=== PATIENT | female | born 1970 | race Caucasian/White ===

== ENCOUNTER → 2021-03-17 10:33 | Outpatient (BNVA) | payer OTHER, SELFPAY | PROVIDERS: PCP Physician Assistant; Visit Provider Nurse Practitioner Family | DX: G24.3 Spasmodic torticollis (principal); F07.81 Postconcussional syndrome; F06.30 Mood disorder due to known physiological condition, unspecified; R90.82 White matter disease, unspecified; Z79.899 Other long term (current) drug therapy | CPT/HCPCS: 99212 ==

== ENCOUNTER → 2021-05-14 10:06 | Outpatient (BNVA) | payer OTHER, SELFPAY | PROVIDERS: PCP Physician Assistant; Visit Provider Nurse Practitioner Family | DX: G24.3 Spasmodic torticollis (principal); F07.81 Postconcussional syndrome; F06.30 Mood disorder due to known physiological condition, unspecified; S09.90XS Unspecified injury of head, sequela | CPT/HCPCS: 99212 ==

== ENCOUNTER → 2021-06-19 09:14 | Outpatient (BNVA) | payer OTHER, SELFPAY | PROVIDERS: PCP Physician Assistant; Visit Provider Nurse Practitioner Family | DX: G24.3 Spasmodic torticollis (principal); F07.81 Postconcussional syndrome; F06.30 Mood disorder due to known physiological condition, unspecified; S09.90XS Unspecified injury of head, sequela | CPT/HCPCS: 99212 ==

== ENCOUNTER → 2021-08-15 09:01 | Outpatient (BNVA) | payer OTHER, SELFPAY | PROVIDERS: PCP Physician Assistant; Visit Provider Nurse Practitioner Family | DX: F06.30 Mood disorder due to known physiological condition, unspecified (principal); F07.81 Postconcussional syndrome; G24.3 Spasmodic torticollis; S09.90XS Unspecified injury of head, sequela | CPT/HCPCS: 99212 ==

== ENCOUNTER → 2021-09-22 09:23 | Outpatient (BNVA) | payer OTHER, SELFPAY | PROVIDERS: PCP Physician Assistant; Visit Provider Nurse Practitioner Family | DX: G24.3 Spasmodic torticollis (principal); F07.81 Postconcussional syndrome; F06.30 Mood disorder due to known physiological condition, unspecified; S09.90XS Unspecified injury of head, sequela | CPT/HCPCS: 99212 ==

== ENCOUNTER → 2021-10-20 15:00 | Outpatient (BNVA) | payer OTHER, SELFPAY | PROVIDERS: PCP Physician Assistant; Visit Provider Psychiatry & Neurology Neurology | DX: G24.3 Spasmodic torticollis (principal) | CPT/HCPCS: 64616; 99211; J0585 ==

== ENCOUNTER → 2021-10-31 08:57 | Outpatient (BNVA) | payer OTHER, SELFPAY | PROVIDERS: PCP Physician Assistant; Visit Provider Psychiatry & Neurology Neurology | DX: G24.3 Spasmodic torticollis (principal) | CPT/HCPCS: 99212 ==

== ENCOUNTER → 2022-05-04 10:49 | Outpatient (BNVA) | payer OTHER, SELFPAY | PROVIDERS: PCP Physician Assistant; Visit Provider Nurse Practitioner Family | DX: F07.81 Postconcussional syndrome (principal); F06.30 Mood disorder due to known physiological condition, unspecified; G24.3 Spasmodic torticollis; S09.90XD Unspecified injury of head, subsequent encounter | CPT/HCPCS: 99212 ==

== ENCOUNTER → 2022-08-04 09:20 | Outpatient (BNVA) | payer OTHER, SELFPAY | PROVIDERS: PCP Physician Assistant; Visit Provider Nurse Practitioner Family | DX: F07.81 Postconcussional syndrome (principal); G24.3 Spasmodic torticollis; F06.30 Mood disorder due to known physiological condition, unspecified; S09.90XS Unspecified injury of head, sequela | CPT/HCPCS: 99212 ==

== ENCOUNTER 2022-12-11 14:25 | Outpatient (AMB) | payer OTHER, SELFPAY ==
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
[2022-12-11 14:27] VITALS: BP 108/78; PULSE 86; O2SAT 98; BMI 24.4
== END 2022-12-11 15:25 | disposition home or self-care (01) ==
PROVIDERS: PCP Physician Assistant; Visit Provider Nurse Practitioner Family
DX: G24.3 Spasmodic torticollis (principal); F07.81 Postconcussional syndrome; F06.30 Mood disorder due to known physiological condition, unspecified; S09.90XS Unspecified injury of head, sequela; M25.531 Pain in right wrist
CPT/HCPCS: 99214

== ENCOUNTER → 2022-12-11 14:25 | Outpatient (BNVA) | payer OTHER, SELFPAY | PROVIDERS: PCP Physician Assistant; Visit Provider Nurse Practitioner Family | DX: F07.81 Postconcussional syndrome (principal); F06.30 Mood disorder due to known physiological condition, unspecified; S09.90XS Unspecified injury of head, sequela; G24.3 Spasmodic torticollis; M25.531 Pain in right wrist; Z79.891 Long term (current) use of opiate analgesic; Z79.899 Other long term (current) drug therapy | CPT/HCPCS: 99212 ==

== ENCOUNTER 2023-06-09 08:02 | Outpatient (AMB) | payer OTHER, SELFPAY ==
[2023-06-09 08:11] VITALS: PULSE 79; O2SAT 99; BMI 24.6
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
== END 2023-06-09 09:52 | disposition home or self-care (01) ==
PROVIDERS: PCP Physician Assistant; Visit Provider Nurse Practitioner Family
DX: G24.3 Spasmodic torticollis (principal); G44.309 Post-traumatic headache, unspecified, not intractable; F07.81 Postconcussional syndrome; R20.2 Paresthesia of skin; M25.531 Pain in right wrist; R90.82 White matter disease, unspecified
CPT/HCPCS: 99214

== ENCOUNTER → 2023-06-09 08:02 | Outpatient (BNVA) | payer OTHER, SELFPAY | PROVIDERS: PCP Physician Assistant; Visit Provider Nurse Practitioner Family | DX: F07.81 Postconcussional syndrome (principal); F06.30 Mood disorder due to known physiological condition, unspecified; S09.90XS Unspecified injury of head, sequela; G24.3 Spasmodic torticollis; G44.209 Tension-type headache, unspecified, not intractable; R20.2 Paresthesia of skin; M25.531 Pain in right wrist; R90.82 White matter disease, unspecified; Z79.899 Other long term (current) drug therapy | CPT/HCPCS: 99212 ==

== ENCOUNTER 2023-09-03 08:29 | Outpatient (REF) | payer OTHER, SELFPAY ==
--- NOTE | ~2023-09-03 | MR_ITS ---
EXAMINATION: MR BRAIN WITHOUT AND WITH CONTRAST CLINICAL INFORMATION: Demyelinating white matter disease COMPARISON: None available. TECHNIQUE: Multiplanar, multisequence MRI of the brain was obtained before and after the intravenous administration of 7 mL Gadavist. FINDINGS: Ventricles, sulci and cisterns are normal. Several T2 hyperintense nonenhancing lesions are seen in bilateral frontal and parietal deep white matters, including a 0.5 cm lesion in mid right parasagittal frontal centrum semiovale, just lateral to the corpus callosum. A flame shaped nonenhancing T2 hyperintense lesion is seen in left parasagittal frontal deep white matter, just lateral to the anterior body of corpus callosum. No focal brainstem or cerebellar lesions with abnormal signal can be seen. Diffusion weighted images show no abnormal regional decrease in diffusion. Post contrast images show no enhancing cerebral, brainstem or cerebellar lesions. No abnormal meningeal enhancement is seen. The pituitary gland is normal. Optic chiasm is not displaced. Cerebellar tonsils position is normal. MR/MR head/brain wo/w con IMPRESSION: 1. 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 2. No acute cerebral infarction is seen. 3. No evidence of space occupying mass lesion or enhancing acutely demyelinating lesion could be found. 4. No evidence of intracranial hemorrhage.
[2023-09-03] MEDS: gadobutroL 7.5 ML VIAL IVPUSH (10:05)
== END 2023-09-03 08:30 | disposition home or self-care (01) ==
LOC: HO.MRI 08:29
PROVIDERS: PCP Physician Assistant; Visit Provider Nurse Practitioner Family
DX: R90.82 White matter disease, unspecified (principal); R20.2 Paresthesia of skin; F09 Unspecified mental disorder due to known physiological condition
CPT/HCPCS: 70553; A9585

== ENCOUNTER 2024-05-01 11:25 | Outpatient (AMB) | payer OTHER, SELFPAY ==
[2024-05-01 11:28] VITALS: BP 118/80; PULSE 69; O2SAT 100; BMI 21.9
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
--- OUTSIDE RECORDS SUMMARY | 2024-05-01 13:34 | XMS_ITS | Clinical Summary ---
Author Organization [facility] Address [address] [place] [address] Care Team Providers Care Customer Experience Analyst Name Role Phone Unavailable Primary Care Provider Unavailabl e Medications Medication Sig Dispensed Refills Start Date End Date Status Ventolin HFA 108 (90 Base) MCG/ACT inhaler 0 12/14/2023 Act alireza amitriptyline (ELAVIL) 10 MG tablet Take 1 tablet (10 mg total) by mouth. 0 Active amphetamine-dextroamp hetamine (ADDERALL XR) 5 MG 24 hr capsule 0 12/13/2023 Active cetirizine (ZyrTEC ALLERGY) 10 MG tablet Take 1 tablet (10 mg total) by mouth daily. 0 02/25/2007 Active clobetasol (TEMOVATE) 0.05 % cream APPLY TO SCALP DAILY DIRECTED 0 09/20/2023 Active clonazePAM (KlonoPIN) 0.5 MG tablet TAKE 1/2 OR 1 TABLET BY MOUTH EVERY NIGHT AT BEDTIME NEEDED FOR SEVERE ANXIETY OR INSOMNIA 0 12/03/2023 Active cloNIDine (CATAPRES) tablet 0.1 mg Take 1 tablet (0.1 mg total) by mouth every night at bedtime. 0 02/28/2020 Active cyclobenzaprine (FLEXERIL) 10 MG tablet Take 1 tablet (10 mg total) by mouth. 0 12/09/2018 Active Diclofenac Sodium 1 % GEL 4 G TOPICALLY 4 TIMES A DAY FOR 14 DAYS APPLY TO RIGHT NECK AND SHOULDER 0 05/04/2022 Active fluticasone (FLONASE) 50 MCG/ACT nasal spray USE 2 SPRAYS IN EACH NOSTRIL ONCE DAILY. 0 11/20/2023 Active levothyroxine (SYNTHROID) tablet 75 mcg Take 1 tablet (75 mcg total) by mouth daily. 0 10/15/2023 Active LORazepam (ATIVAN) 0.5 MG tablet 1 po bid prn anxiety or insomnia 0 01/22/2021 Active omeprazole (PriLOSEC) 20 MG capsule Take 1 capsule (20 mg total) by mouth daily. 0 05/24/2023 Active predniSONE (DELTASONE) tablet 20 mg TAKE 3 TABS FOR 3 DAYS, TAKE 2 TABS FOR 3 DAYS, TAKE 1 TAB FOR 3 DAYS 0 12/06/2023 Active sertraline (ZOLOFT) 50 MG tablet 0 12/12/2023 Active SUMAtriptan (IMITREX) 100 MG tablet Take 1 tablet (100 mg total) by mouth. 0 09/22/2021 Active traMADol (ULTRAM) 50 MG tablet TK 1 T PO QHS AND Q 4 H PRN UTD 0 01/26/2020 Active Active Problems No known active problems Social History Tobacco Use Types Packs/Day Years Used Date Smoking Tobacco: Never Assessed Sex and Gender Information Value Date Recorded Sex Assigned at Not on file Gender Identity Not on file Sexual Orientation Not on file Job Start Date Occupation Industry Not on file Not on file Not on file Plan of Treatment Health Maintenance Due Date Last Done Comments Hepatitis B Vaccines (1 of 3 - 3-dose series) 1968 Hepatitis C Screening 1968 COVID-19 Vaccine (#1) 1968 Depression Screening 1980 Preventative Health Evaluation 1986 Cervical Cancer Screening (Pap Smear) 1989 Colon Cancer Screening (Colonoscopy) 2013 DTap / Tdap / Td (2 - Td or Tdap) 11/04/2016 11/04/2006 Breast Cancer Screening (Mammogram) 2018 Shingrix-Zoster Vaccine (1 o f 2) 2018 Influenza Vaccine (#1) 2023 12/31/2016 Pneumococcal Vaccine Aged Out 02/05/2017, 02/21/2015 No longer eligible based on patient's age to complete this topic RSV Ped < 20 months Aged Out No longe r eligible based on patient's age to complete this topic
--- OUTSIDE RECORDS SUMMARY | 2024-05-01 13:34 | XMS_ITS | Clinical Summary ---
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 CHEMISTRY METHOD 03/21/2024 4:51 PM [facility] Glucose 81 70 - 100 mg/dL LAB CHEMISTRY METHOD 03/21/2024 4:51 PM [facility] BUN 24 5 - 25 mg/dL LAB CHEMISTRY METHOD 03/21/2024 4:51 PM [facility] Creatinine 1.03 0.50 - 1.10 mg/dL LAB CHEMISTRY METHOD 03/21/2024 4:51 PM [facility] eGFR 64 >=60 mL/min/1. 73m2 LAB CHEMISTRY METHOD 03/21/2024 4:51 PM [facility] Comment:Calculation based on the??Chronic Kidney Disease Epidemiology Collaboration (CKD-EPI) equation refit??without adjustment for race. BUN/Creatinine Ratio 23.3 LAB CHEMISTRY METHOD 03/21/2024 4:51 PM [facility] Calcium 9.7 8.5 - 10.5 mg/dL LAB CHEMISTRY METHOD 03/21/2024 4:51 PM [facility] AST (SGOT) 19 10 - 42 unit/L LAB CHEMISTRY METHOD 03/21/2024 4:51 PM [facility] ALT (SGPT) 27 10 - 60 unit/L LAB CHEMISTRY METHOD 03/21/2024 4:51 PM [facility] Alkaline Phosphatase 71 42 - 121 unit/L LAB CHEMISTRY METHOD 03/21/2024 4:51 PM [facility] Total Protein 7.5 6.0 - 8.0 g/dL LAB CHEMISTRY METHOD 03/21/2024 4:51 PM [facility] Albumin 4.2 3.2 - 5.0 g/dL LAB CHEMISTRY METHOD 03/21/2024 4:51 PM [facility] Total Bilirubin 0.4 0.0 - 1.4 mg/dL LAB CHEMISTRY METHOD 03/21/2024 4:51 PM [facility] Blood Venous blood specimen / Unknown Venipuncture / Unknown 03/21/2024 1:20 PM EST 03/21/2024 1:20 PM EST Florencia Christopher NP LAB BLOOD ORDERABLES Final R esult [facility] [address] [place] [address], [place] [phone] * XR Chest 2 Views (03/21/2024 12:46 PM EST) Anatomical Region Laterality Modality Body Radiographic Itzel ging 03/21/2024 1:32 PM EST Impressions 03/21/2024 1:33 PM EST No acute abnormality. -------- FINAL REPORT -------- Dictated By: Kian Hart Dictated Date: 03/21/2024 13:32 ET Assigned Physician: Kian Hart Reviewed and Electronically Signed By: Kian Hart Signed Date: 03/21/2024 13:33 ET Workstation ID: [id number] Transcribed By: Self Edit Transcribed Date: 03/21/2024 13:32 ET Narrative 03/21/2024 1:33 PM EST XR CHEST 2 VIEWS Reason: Cough, persistent MODERATE ASTHMA Comparison: None FINDINGS: Lungs: Lungs are clear. No focal consolidation or pulmonary edema. Pleura: No pleural effusion or pneumothorax. Heart/Mediastinum: Cardiomediastinal silhouette is within normal limits. Bones : No acute findings. ??Cervical spine fusion hardware. Procedure Note Kian Hart MD - 03/21/2024 XR CHEST 2 VIEWS Reason: Cough, persistent MODERATE ASTHMA Comparison: None FINDINGS: Lungs: Lungs are clear. No focal consolidation or pulmonary edema. Pleura: No pleural effusion or pneumothorax. Heart/Mediastinum: Cardiomediastinal silhouette is within normal limits. Bones : No acute findings. Cervical spine fusion hardware. IMPRESSION: No acute abnormality. -------- FINAL REPORT -------- Dictated By: Kian Hart Dictated Date: 03/21/2024 13:32 ET Assigned Physician: Kian Hart Reviewed and Electronically Signed By: Kian Hart Signed Date: 03/21/2024 13:33 ET Workstation ID: [id number] Transcribed By: Self Edit Transcribed Date: 03/21/2024 13:32 ET Florencia Christopher NP IMG XR PROCEDURES Final Resu lt * SCREENING MAMMOGRAPHY BI 2-VIEW BREAST INC CAD (06/10/2023 9:40 AM EDT) Anatomical Region Laterality Modality Radiographic Itzel ging 06/01/2022 6:47 PM EDT Narrative 06/10/2023 1:07 PM EDT This is a summary report. The complete report is available in the patient's medical record. If you cannot access the medical record, please contact the sending organization for a detailed fax or copy. Full field digital screening tomosynthesis mammography, reviewed with CAD and compared to previous. The breasts are composed of fatty and fibroglandular tissue. ??No suspicious mass, architectural distortion or suspicious calcifications are identified. IMPRESSION: : No mammographic evidence of malignancy. BIRADS 1-Negative; N. 5 year breast cancer risk assessment 0.7 % Lifetime breast cancer risk assessment 4.7 % Breast cancer risk category Low (<15%) Procedure Note Rishabh Ramires MD - 10/18/2023 This is a summary report. The complete report is available in thepatient's medical record. If you cannot access the medical record, pleasecontact the sending organization for a detailed fax or copy. Full field digital screening tomosynthesis mammography, reviewed with CADand compared to previous. The breasts are composed of fatty andfibroglandular tissue. No suspicious mass, architectural distortion orsuspicious calcifications are identified. IMPRESSION: : No mammographic evidence of malignancy. BIRADS 1-Negative; N. 5 year breast cancer risk assessment 0.7 % Lifetime breast cancer risk assessment 4.7 % Breast cancer risk category Low (<15%) Julio Umana MD IMG XR PROCEDURES Final Result * Cervical Cancer Screening: HPV (05/27/2022) Cervical Cancer Screening: HPV Negative, Abstracted Historical Provider HEALTH MAINTENANCE Final Result * Colonoscopy (06/21/2020) HM Colonoscopy No Interpretation , Abstracted Anatomical Region Laterality Modality Other us Historical Provider HEALTH MAINTENANCE Final Result from Last 3 Months or Most Recently Relevant to Health Maintenance Insurance [facility] Care Teams Weight Loss Physician Relationship Specialty Start Date End Date Julio Umana MD [address] [place] [id number] PCP - General Internal Medicine 03/17/24
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
== END 2024-05-01 12:35 | disposition home or self-care (01) ==
PROVIDERS: PCP Physician Assistant; Visit Provider Nurse Practitioner Family
DX: F07.81 Postconcussional syndrome (principal); G44.309 Post-traumatic headache, unspecified, not intractable; G24.3 Spasmodic torticollis; F06.30 Mood disorder due to known physiological condition, unspecified; F09 Unspecified mental disorder due to known physiological condition; R20.2 Paresthesia of skin; M25.531 Pain in right wrist; R90.82 White matter disease, unspecified
CPT/HCPCS: 99214; G2211

== ENCOUNTER → 2024-05-01 11:25 | Outpatient (BNVA) | payer OTHER, SELFPAY | PROVIDERS: PCP Physician Assistant; Visit Provider Nurse Practitioner Family | DX: F07.81 Postconcussional syndrome (principal); F06.30 Mood disorder due to known physiological condition, unspecified; S09.90XS Unspecified injury of head, sequela; G24.3 Spasmodic torticollis; R20.2 Paresthesia of skin; F09 Unspecified mental disorder due to known physiological condition; M25.531 Pain in right wrist; R90.82 White matter disease, unspecified; G43.009 Migraine without aura, not intractable, without status migrainosus; Z79.899 Other long term (current) drug therapy | CPT/HCPCS: 99212 ==

== ENCOUNTER 2024-09-12 10:56 | Outpatient (AMB) | payer OTHER, SELFPAY ==
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
[2024-09-12 10:58] VITALS: BP 100/70; PULSE 72; O2SAT 100; BMI 21.1
--- OUTSIDE RECORDS SUMMARY | 2024-09-12 12:18 | XMS_ITS | Patient Health Record ---
Author Organization Guido Garcia MD Address [address] [address] Care Team Providers Care Reed Repairer Name Role Phone Jose Guido Unavailable [phone] Allergies Allergen (clinical drug ingredient) Drug/Non Drug Allergy documented on EMR Reaction Allergy Type Onset Date Status N.K.D.A. (uncoded) Unknown Allergy A ctive Reason For Referral No Information Medications Medication SIG (Take, Route, Frequency, Duration) Notes Start Date End Date Status Flexeril Active traMADol HCl Active Problems Problem Type SNOMED Code ICD Code Onset Dates Problem Status W/U Status Risk Notes Problem History and physical examination, follow-up (110607252) Encounter for follow-up examination after completed treatment for conditions other than malignant neoplasm (Z09) Active confirmed Problem Cervical spondylosis (475389234) Cervical spondylosis (M47.812) Active confirmed Problem Postoperative care (777542466) Postop check (V67.00) Active confirmed Plan Of Treatment Pending Test Test Name Order Date COMPLETE BLOOD COUNT W PLT - CBC 019 COMPLETE BLOOD COUNT W PLT - CBC 019 PASU PANEL - PASU PANEL 10/19/2018 SODIUM - NA 10/26/2018 POTASSIUM - K 10/26/2018 CREATININE - CR 10/26/2018 MAGNESIUM - MG 10/26/2018 MRSA/MSSA PCR 10/19/2018 CT Scan : Cervical Spine 11/10/2019 TS Automated 10/25/2018 SPECT 10/18/2019 x ray : cervical spine (PALat/Flex/Ext) 10/18/2019 TSAPASU 10/19/2018 CERVICAL SPINE 2-3 VIEWS 01/16/2019 CT CERVICAL SPINE WO CONTRAST 12/12/2019 FLUORO C ARM OR 10/25/2018 SURG 10/25/2018 Insurance Providers Payer Name Payer Address Payer Phone Subscriber Number Group Number Insured Name Patient Relationship to Insured Coverage Start Date Coverage End Date Workman 's Comp Marley Hickeyam Self - patient is the insured Medical (General) History Medical History History ICD Code Healthy Surgical History Surgery Date(Month/Year) Vocal Cord 2010 1991 ACDF C5-6,6-7 with C6-7 arthroplasty [phone]
--- OUTSIDE RECORDS SUMMARY | 2024-09-12 12:18 | XMS_ITS | Clinical Summary ---
Author Organization [facility] Address [address] [place] [address] Care Team Providers Care Band Nailer Name Role Phone Julio Umana MD Primary Care Provider [phone] Allergies Active Allergy Reactions Criticality Noted Date Comments Ampicillin 07/13/2005 Other Reaction(s): Hives/Urticaria Aspirin 07/13/2005 unsure Meperidine Hcl Wheezing 07/13/2005 Other Itching,Other High 04/04/2009 Seasonal Allergies Other Reaction(s): Rash/Dermatitis, Runny Nose/Rhinitis Oxycodone-Acetaminophen 07/13/2005 disoriented Penicillins Hives Medium 01/01/2011 Medications sertraline (ZOLOFT) 50 mg tablet 135 each 3 Active clobetasoL 0.05 % shampoo APPLY 10 ML TOPICALLY DAILY. Active prazosin (MINIPRESS) 1 mg capsule Take 1 capsule (1 mg total) by mouth at bedtime. Active diclofenac (VOLTAREN) 1 % topical gel 4 G TOPICALLY 4 TIMES A DAY FOR 14 DAYS APPLY TO RIGHT NECK AND SHOULDER 3 Active SUMAtriptan (IMITREX) 100 mg tablet Take 1 tablet (100 mg total) by mouth. 2 Active LORazepam (ATIVAN) 0.5 mg tablet 1 po bid prn anxiety or insomnia 1 Active traMADoL (ULTRAM) 50 mg tablet TK 1 T PO QHS AND Q 4 H PRN UTD 0 Active cloNIDine (CATAPRES) 0.1 mg tablet Take 1 tablet (0.1 mg total) by mouth at bedtime. 0 Active cyclobenzaprine (FLEXERIL) 10 mg tablet Take 1 tablet (10 mg total) by mouth. 9 Active amitriptyline (ELAVIL) 10 mg tablet Take 1 tablet (10 mg total) by mouth. Active clobetasoL (TEMOVATE) 0.05 % cream APPLY TO SCALP DAILY DIRECTED 30 g 4 Active alpha lipoic acid-biotin 300 mg- 333 mcg capsule TAKE 1 CAPSULE BY MOUTH EVERY DAY FOR 30 DAYS. NOT COVERED 4 Active clonazePAM (KlonoPIN) 0.5 mg tablet TAKE 1/2 OR 1 TABLET BY MOUTH EVERY NIGHT AT BEDTIME NEEDED FOR SEVERE ANXIETY OR INSOMNIA 4 Active magnesium oxide (MAG-OX) 400 mg (241.3 elemental magnesium) tablet TAKE 1 TAB ORALLY BEDTIME FOR 30 DAYS MAY HOLD FOR LOOSE STOOLS 4 Active Vios Aerosol Delivery System device USE DIRECTED EVERY 4 HOURS 4 Active loratadine (CLARITIN) 10 mg tabletIndicatio ns:Moderate persistent asthma with allergic rhinitis with status asthmaticus Take 1 tablet (10 mg total) by mouth 1 (one) time each day. 30 each 2 5 Active fluticasone propionate (FLONASE) 50 mcg/actuation nasal sprayIndication s:Moderate persistent asthma with allergic rhinitis with status asthmaticus Administer 2 sprays into each nostril 1 (one) time each day. 16 g 2 5 Active naproxen (NAPROSYN) 500 mg tabletIndicatio ns:Costochondri tis, acute Take 1 tablet (500 mg total) by mouth 2 (two) times a day if needed for mild pain (pain). 60 tablet 11 5 03/21/19 26 Active ergocalciferol (VITAMIN D-2) 1,250 mcg (50,000 unit) capsule Take 1 capsule (50,000 Units total) by mouth 1 (one) time per week. 12 each 1 5 04/27/19 26 Active omeprazole (PriLOSEC) [address] capsuleIndicati ons:Gastroesoph ageal reflux disease without esophagitis TAKE 1 CAPSULE BY MOUTH DAILY 90 capsule 5 Active budesonide-form oteroL (SYMBICORT) 160-4.5 mcg/actuation inhalerIndicati ons:Moderate persistent asthma with allergic rhinitis with status asthmaticus Inhale 2 puffs by mouth 2 (two) times a day. Rinse mouth with water after use to reduce aftertaste and incidence of candidiasis. Do not swallow. 3 each 3 5 06/22/19 26 Active albuterol HFA (Ventolin HFA) 90 mcg/actuation inhalerIndicati ons:Moderate persistent asthma with allergic rhinitis with status asthmaticus Inhale 2 puffs by mouth every 6 (six) hours if needed for wheezing. 3 each 3 5 06/22/19 26 Active inhalational spacing device (Aerochamber MV) inhalerIndicati ons:Moderate persistent asthma with allergic rhinitis with status asthmaticus Use as instructed 1 each 5 06/22/19 26 Active albuterol 2.5 mg /3 mL (0.083 %) nebulizer solutionIndicat ions:Moderate persistent asthma with allergic rhinitis with status asthmaticus Take 3 mL (2.5 mg total) by nebulization every 6 (six) hours if needed for wheezing. 360 mL 11 5 06/22/19 26 Active levothyroxine (SYNTHROID, LEVOTHROID) 75 mcg tablet TAKE 1 TABLET BY MOUTH EVERY DAY 90 tablet 3 5 Active Active Problems Problem Noted Date Diagnosed Date [...] nodule. Elevated hematocrit 10/25/2018 Major depressive disorder, r ecurrent, moderate (CMS/HCC V24, CMS/HCC V28) 05/09/2018 Degenerative disc disease, cervical 05/06/2018 Overview [...] Encounters Date Type Department Care Team Description 07/19/2024 2:40 PM EDT - 07/19/2024 11:59 PM EDT Hospital Encounter Radiology Department - [address] [phone] Abnormal mammogram Discharge Disposition: Home or Self Care 07/19/2024 2:39 PM EDT - 07/19/2024 11:59 PM EDT Hospital Encounter Radiology Department - [address] [phone] Abnormal mammogram Discharge Disposition: Home or Self Care 06/29/2024 8:00 AM EDT Office Visit [facility] for [address] [place] [phone] Lilibeth Cole MD 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); Postconcussion syndrome; Cognitive change 06/27/2024 6:05 PM EDT - 06/27/2024 11:59 PM EDT Hospital Encounter Radiology Department - [address] [phone] Hypothyroidism, unspecified type; Thyroid nodule Discharge Disposition: Home or Self Care 06/26/2024 11:00 AM EDT Office Visit Endocrinology - [address] [phone] Maria L Schmitz PA Hypothyroidism, unspecified type (Primary Dx); Thyroid nodule 06/26/2024 9:27 AM EDT - 06/26/2024 11:59 PM EDT Hospital Encounter Radiology Department - [address] [phone] Encounter for screening mammogram for breast cancer Discharge Disposition: Home or Self Care 06/21/2024 4:00 PM EDT Consult Pulmonolgy [address] [phone] Kenya Bradley MD Moderate persistent asthma with allergic rhinitis with status asthmaticus 06/21/2024 2:45 PM EDT Procedure visit Pulmonolgy [address] [phone] Dixie Choe Dyspnea, unspecified type from Last 3 Months Immunizations Name Administration [...] Surgery Date Site/Laterality Comments ESOPHAGOGASTRODUODENOSCOPY 09/14/2011 PROCEDURE: MN ESOPHAGOGASTRODUODENOSCOPY TRANSORAL DIAGNOSTIC; COMMENT: normal OTHER SURGICAL HISTORY 01/08/2012 PROCEDURE: MN LARGSC MICRO/TELESCOPE RMVL LES VOCAL CORD FLAP SECTION PROCEDURE: HISTORICAL DELIVERY OTHER SURGICAL HISTORY PROCEDURE: MN ARTHRODESIS ANTERIOR SPINAL DFRM 2-3 VRT SGM; [...] DX:Degenerative disc disease, cervical; COMMENT: Primarily C Excessive or frequent menstruation 11/04/2006 DX:Excessive or [...] = 0.6 oz pur e alcohol) Comments No Sex and Gender Information Value Date Recorded Sex Assigned at Not on file Legal Sex Female 12:43 PM EST Gender Identity Not on file Sexual Orientation Not on file Obstetrics History Para Term AB IAB SAB Ectopic Multiple Livin g Live Births 2 2 2 2 Date Outcome GA Total Labor Labor/2nd/3rd Weight Sex Type Anes PTL Julieta A1 A5 Name Clin Term Term Last Filed Vital Signs Vital Sign Reading Time Taken Comments Blood Pressure 125/85 06/29/2024 7:59 AM EDT Pulse 77 06/29/2024 7:59 AM EDT Temperature 35.8 C (96.5 F) 06/26/2024 11:13 AM EDT Respiratory Rate 20 06/21/2024 2:29 PM EDT Oxygen Saturation 99% 06/29/2024 7:59 AM EDT Inhaled Oxygen Concentration - - Weight 60.8 kg (134 lb) 06/29/2024 7:59 AM EDT Height 170.2 cm (5' 7 ) 06/29/2024 7:59 AM EDT Body Mass Index 20.99 06/29/2024 7:59 AM EDT Plan of Treatment Upcoming Encounters Date Type Department Care Team (Late st Contact Info) Description 09/18/2024 10:15 AM EDT Office Visit Internal Medicine - [address] [phone] Florencia Rand NP [address] [place] [id number] 06/29/2025 9:30 AM EDT Appointment Radiology Department - [address] [phone] Health Maintenance Due Date Last Done Comments Hepatitis B Vaccines (1 of 3 - 19+ 3-dose series) 1987 Zoster Vaccines (1 of 2) 2018 Pneumococcal Vaccine: 50+ Years (3 of 3 - PCV20 or PCV21) 02/05/2022 02/05/2017, 02/21/2015 Depression Screening 02/07/2022 HIV Screening 02/07/2022 Hepatitis C Screening 02/07/2022 Social Influencers of Health Screening 02/07/2022 COVID-19 Vaccine ( - season) 2023 12/17/2021, 04/01/2021 Influenza Vaccine (#1) 2024 12/31/2016 Colorectal Cancer Screening: Colonoscopy 06/21/2025 06/21/2020 Breast Cancer Screening 07/19/2026 07/20/19, 06/26/2024, 06/10/2023, Additional history exists Cervical Cancer Screening: HPV 05/28/2027 05/27/2022 Cholesterol [...] age to complete this topic Meningococcal B Vaccine Aged Out No l onger eligible based on patient's age to complete this topic RSV Immunization Patients Under 20 months Aged Out No longer eligible based on patient's age to complete this topic Varicella Vaccines Aged Out No longer eligible based on patient's age to complete this topic Procedures Procedure Name Priority Date/Time Associated Diagnosis Comments US BREAST LIMITED LEFT Routine 07/19/2024 3:17 PM EDT Abnormal mammogram MG MAMMO DIGITAL DIAGNOSTIC W MANUEL LEFT Routine 07/19/2024 3:08 PM EDT Abnormal mammogram US HEAD NECK SOFT TISSUE Routine 06/27/2024 6:25 PM EDT Hypothyroidism, unspecified type Thyroid nodule THYROXINE FREE Routine 06/26/2024 12:44 PM EDT Hypothyroidism, unspecified type THYROID STIMULATING HORMONE Routine 06/26/2024 12:44 PM EDT Hypothyroidism, unspecified type MG MAMMO DIGITAL SCREENING W MANUEL BILAT Routine 06/26/2024 9:51 AM EDT Encounter for screening mammogram for breast cancer PULMONARY FUNCTION TESTING Routine 06/21/2024 2:47 PM EDT Dyspnea, unspecified type LIPID PANEL WITH REFLEX TO DIRECT LDL Routine 03/21/2024 1:20 PM EST Screening for metabolic disorder HM HPV Routine 05/27/2022 HM COLONOSCOPY Routine 06/21/2020 from Last 3 Months or Most Recently Relevant to Health Maintenance Results * US Breast Limited Left (07/19/2024 3:17 PM EDT) Anatomical Region Laterality Modality Breast Left Ultrasound 07/19/2024 4:06 PM EDT Impressions 07/19/2024 4:15 PM EDT LEFT BREAST: 0.7 cm solid mass at 2 o'clock position at 5 cm from the nipple correlates with the mammographic finding. Given mammographic stability since 2014 and benign sonographic features, findings likely represents a benign fibroadenoma. Benign, no evidence of malignancy. Normal interval follow-up is recommended in 12 months. Findings and recommendations were discussed with the patient at the completion of the studies. BREAST DENSITY: B - There are scattered areas of fibroglandular density. BI-RADS CATEGORY: 2 - BENIGN RECOMMENDATION: Mammography: Screening bilateral mammogram is recommended in 1 year. Ultrasound: Screening bilateral mammogram is recommended in 1 year. Mammo Location: [facility], [address] [place] [address], [id number], . -------- FINAL REPORT -------- Dictated By: Kian Hart Dictated Date: 07/19/2024 16:06 ET Assigned Physician: Kian Hart Reviewed and Electronically Signed By: Kian Hart Signed Date: 07/19/2024 16:15 ET Workstation ID: [id number] Transcribed By: Self Edit Transcribed Date: 07/19/2024 16:06 ET Narrative 07/19/2024 4:15 PM EDT HISTORY: Callback from screening for left breast finding STUDIES: 1. Unilateral left diagnostic mammography with tomosynthesis and CAD 2. Targeted ultrasound of the left breast TECHNIQUE: Unilateral left digital diagnostic mammography is obtained and read in conjunction with computer-aided detection. Tomosynthesis as well as 2-D C view imaging were obtained. Spot compression Tomosynthesis images were also obtained. COMPARISON: Comparison made to multiple prior, most recent June 26, 2024, and most remote December 14, 2014. LEFT BREAST: Approximately 0.8 cm mass in the upper-outer quadrant at about 5 cm from the nipple (spot MLO 13/49, spot CC 21/50) on today's images, appears similar to multiple prior studies as far back as 2014. No significant masses are seen. Targeted ultrasound of the left breast was performed at the location of the mammographic finding. The survey shows a 0.7 x 0.5 x 0.5 cm hypoechoic solid mass with parallel orientation at 2 o'clock position 5 cm from the nipple. Minimal internal vascularity demonstrated with color Doppler evaluation. Procedure Note Kian Hart MD - 07/19/2024 HISTORY: Callback from screening for left breast finding STUDIES: 1. Unilateral left diagnostic mammography with tomosynthesis and CAD 2. Targeted ultrasound of the left breast TECHNIQUE: Unilateral left digital diagnostic mammography is obtained andread in conjunction with computer-aided detection. Tomosynthesis as wellas 2-D C view imaging were obtained. Spot compression Tomosynthesis imageswere also obtained. COMPARISON: Comparison made to multiple prior, most recent June 26, 2024,and most remote December 14, 2014. LEFT BREAST: Approximately 0.8 cm mass in the upper-outer quadrant atabout 5 cm from the nipple (spot MLO 13/49, spot CC 21/50) on today'simages, appears similar to multiple prior studies as far back as 2014. Nosignificant masses are seen. Targeted ultrasound of the left breast was performed at the location ofthe mammographic finding. The survey shows a 0.7 x 0.5 x 0.5 cmhypoechoic solid mass with parallel orientation at 2 o'clock position 5 cmfrom the nipple. Minimal internal vascularity demonstrated with colorDoppler evaluation. IMPRESSION: LEFT BREAST: 0.7 cm solid mass at 2 o'clock position at 5 cm from thenipple correlates with the mammographic finding. Given mammographicstability since 2014 and benign sonographic features, findings likelyrepresents a benign fibroadenoma. Benign, no evidence of malignancy.Normal interval follow-up is recommended in 12 months. Findings and recommendations were discussed with the patient at thecompletion of the studies. BREAST DENSITY: B - There are scattered areas of fibroglandular density. BI-RADS CATEGORY: 2 - BENIGN RECOMMENDATION: Mammography: Screening bilateral mammogram is recommended in 1 year. Ultrasound: Screening bilateral mammogram is recommended in 1 year. Mammo Location: [facility], [address] [place] [address], [id number], . -------- FINAL REPORT -------- Dictated By: Kian Hart Dictated Date: 07/19/2024 16:06 ET Assigned Physician: Kian Hart Reviewed and Electronically Signed By: Kian Hart Signed Date: 07/19/2024 16:15 ET Workstation ID: [id number] Transcribed By: Self Edit Transcribed Date: 07/19/2024 16:06 ET us Julio Umana MD IMG US PROCEDURES Final Result * MG Mammo Digital Diagnostic w Manuel Left (07/19/2024 3:08 PM EDT) Anatomical Region Laterality Modality Breast Left Mammography 07/19/2024 4:06 PM EDT Impressions 07/19/2024 4:15 PM EDT LEFT BREAST: 0.7 cm solid mass at 2 o'clock position at 5 cm from the nipple correlates with the mammographic finding. Given mammographic stability since 2014 and benign sonographic features, findings likely represents a benign fibroadenoma. Benign, no evidence of malignancy. Normal interval follow-up is recommended in 12 months. Findings and recommendations were discussed with the patient at the completion of the studies. BREAST DENSITY: B - There are scattered areas of fibroglandular density. BI-RADS CATEGORY: 2 - BENIGN RECOMMENDATION: Mammography: Screening bilateral mammogram is recommended in 1 year. Ultrasound: Screening bilateral mammogram is recommended in 1 year. Mammo Location: [facility], [address] [place] [address], [id number], . -------- FINAL REPORT -------- Dictated By: Kian Hart Dictated Date: 07/19/2024 16:06 ET Assigned Physician: Kian Hart Reviewed and Electronically Signed By: Kian Hart Signed Date: 07/19/2024 16:15 ET Workstation ID: [id number] Transcribed By: Self Edit Transcribed Date: 07/19/2024 16:06 ET Narrative 07/19/2024 4:15 PM EDT HISTORY: Callback from screening for left breast finding STUDIES: 1. Unilateral left diagnostic mammography with tomosynthesis and CAD 2. Targeted ultrasound of the left breast TECHNIQUE: Unilateral left digital diagnostic mammography is obtained and read in conjunction with computer-aided detection. Tomosynthesis as well as 2-D C view imaging were obtained. Spot compression Tomosynthesis images were also obtained. COMPARISON: Comparison made to multiple prior, most recent June 26, 2024, and most remote December 14, 2014. LEFT BREAST: Approximately 0.8 cm mass in the upper-outer quadrant at about 5 cm from the nipple (spot MLO 13/49, spot CC 21/50) on today's images, appears similar to multiple prior studies as far back as 2014. No significant masses are seen. Targeted ultrasound of the left breast was performed at the location of the mammographic finding. The survey shows a 0.7 x 0.5 x 0.5 cm hypoechoic solid mass with parallel orientation at 2 o'clock position 5 cm from the nipple. Minimal internal vascularity demonstrated with color Doppler evaluation. Procedure Note Kian Hart MD - 07/19/2024 HISTORY: Callback from screening for left breast finding STUDIES: 1. Unilateral left diagnostic mammography with tomosynthesis and CAD 2. Targeted ultrasound of the left breast TECHNIQUE: Unilateral left digital diagnostic mammography is obtained andread in conjunction with computer-aided detection. Tomosynthesis as wellas 2-D C view imaging were obtained. Spot compression Tomosynthesis imageswere also obtained. COMPARISON: Comparison made to multiple prior, most recent June 26, 2024,and most remote December 14, 2014. LEFT BREAST: Approximately 0.8 cm mass in the upper-outer quadrant atabout 5 cm from the nipple (spot MLO 13/49, spot CC /) on today'simages, appears similar to multiple prior studies as far back as 2014. Nosignificant masses are seen. Targeted ultrasound of the left breast was performed at the location ofthe mammographic finding. The survey shows a 0.7 x 0.5 x 0.5 cmhypoechoic solid mass with parallel orientation at 2 o'clock position 5 cmfrom the nipple. Minimal internal vascularity demonstrated with colorDoppler evaluation. IMPRESSION: LEFT BREAST: 0.7 cm solid mass at 2 o'clock position at 5 cm from thenipple correlates with the mammographic finding. Given mammographicstability since 2014 and benign sonographic features, findings likelyrepresents a benign fibroadenoma. Benign, no evidence of malignancy.Normal interval follow-up is recommended in 12 months. Findings and recommendations were discussed with the patient at thecompletion of the studies. BREAST DENSITY: B - There are scattered areas of fibroglandular density. BI-RADS CATEGORY: 2 - BENIGN RECOMMENDATION: Mammography: Screening bilateral mammogram is recommended in 1 year. Ultrasound: Screening bilateral mammogram is recommended in 1 year. Mammo Location: [facility], [address] [place] [address], [phone], . -------- FINAL REPORT -------- Dictated By: Kian Hart Dictated Date: 07/19/2024 16:06 ET Assigned Physician: Kian Hart Reviewed and Electronically Signed By: Kian Hart Signed Date: 07/19/2024 16:15 ET Workstation ID: [id number] Transcribed By: Self Edit Transcribed Date: 07/19/2024 16:06 ET us Julio Umana MD IMG BI PROCEDURES Final Result * US Head Neck Soft Tissue (06/27/2024 6:25 PM EDT) Anatomical Region Laterality Modality Head and Neck Ultrasound 06/28/2024 10:1 7 AM EDT Narrative 06/28/2024 10:20 AM EDT Thyroid ultrasound. History follow-up thyroid nodules. Comparison is previous study from 06/04/2023. Right thyroid lobe measures 3.4 x 1.8 x 1.4 cm. There is slightly hyperechoic nodule in the midpole measuring 1 x 0.9 x 0.9 cm, previously 1.6 x 0.9 x 1.1 cm. There is adjacent hyperechoic nodule measuring 1.2 x 1 x 0.9 cm, previously 1.3 x 0.9 x 1 cm. There is normal flow on color Doppler examination. Left thyroid lobe measures 3.3 x 1.6 x 1.5 cm. There is a tiny slightly hyperechoic nodule is poorly defined borders measuring 0.6 x 0.5 x 0.5 cm, previously 0.8 x 0.5 x 0.8 cm. CONCLUSIONS: Bilateral thyroid nodules as detailed without significant interval change or slightly smaller than on prior study. -------- FINAL REPORT -------- Dictated By: Brenda Shay Dictated Date: 06/28/2024 10:17 ET Assigned Physician: Brenda Shay Reviewed and Electronically Signed By: Brenda Shay Signed Date: 06/28/2024 10:20 ET Workstation ID: [id number] Transcribed By: Self Edit Transcribed Date: 06/28/2024 10:17 ET Procedure Note Brenda Shay MD - 06/28/2024 Thyroid ultrasound. History follow-up thyroid nodules. Comparison is previous study from 06/04/2023. Right thyroid lobe measures 3.4 x 1.8 x 1.4 cm. There is slightlyhyperechoic nodule in the midpole measuring 1 x 0.9 x 0.9 cm, previously1.6 x 0.9 x 1.1 cm. There is adjacent hyperechoic nodule measuring 1.2 x 1x 0.9 cm, previously 1.3 x 0.9 x 1 cm. There is normal flow on colorDoppler examination. Left thyroid lobe measures 3.3 x 1.6 x 1.5 cm. There is a tiny slightlyhyperechoic nodule is poorly defined borders measuring 0.6 x 0.5 x 0.5 cm,previously 0.8 x 0.5 x 0.8 cm. CONCLUSIONS: Bilateral thyroid nodules as detailed without significantinterval change or slightly smaller than on prior study. -------- FINAL REPORT -------- Dictated By: Brenda Shay Dictated Date: 06/28/2024 10:17 ET Assigned Physician: Brenda Shay Reviewed and Electronically Signed By: Brenda Shay Signed Date: 06/28/2024 10:20 ET Workstation ID: [id number] Transcribed By: Self Edit Transcribed Date: 06/28/2024 10:17 ET us Maria L DUCKWORTH IMG US PROCEDURES Final Result * Thyroid stimulating hormone (06/26/2024 12:44 PM EDT) TSH 1.03 0.40 - 4.00 mcIU/mL LAB CHEMISTRY METHOD 06/26/2024 3:30 PM EDT [facility] Blood Venous blood specimen / Unknown Venipuncture / Unknown 06/26/2024 12:44 PM EDT 06/26/2024 12:44 PM EDT us Maria L DUCWKORTH LAB BLOOD ORDERABLES Final Resul t [facility] [address] [place] [address], [place] [phone] * Thyroxine free (06/26/2024 12:44 PM EDT) Free T4 1.73 0.70 - 1.80 ng/dL LAB CHEMISTRY METHOD 06/26/2024 3:30 PM EDT [facility] Blood Venous blood specimen / Unknown Venipuncture / Unknown 06/26/2024 12:44 PM EDT 06/26/2024 12:44 PM EDT us Maria L DUCKWORTH LAB BLOOD ORDERABLES Final Resul t [facility] [address] [place] [address], [place] [phone] * (ABNORMAL) MG Mammo Digital Screening w Manuel bilat (06/26/2024 9:51 AM EDT) Anatomical Region Laterality Modality Breast Bilateral Mammography 06/26/2024 3:46 PM EDT Impressions 06/26/2024 3:50 PM EDT Asymmetric opacity in the left upper outer breast. Additional evaluation is recommended with spot compression views in CC, MLO projection, full field straight lateral view all with 2 DC views and Tomosynthesis. Ultrasound would also be needed. BI-RADS CATEGORY: 0 - INCOMPLETE - NEED ADDITIONAL IMAGING EVALUATION RECOMMENDATION: Additional left breast imaging recommended. Mammo Location: [facility], [address] [place] [address], [id number], . -------- FINAL REPORT -------- Dictated By: Brenda Shay Dictated Date: 06/26/2024 15:46 ET Assigned Physician: Brenda Shay Reviewed and Electronically Signed By: Brenda Shay Signed Date: 06/26/2024 15:50 ET Workstation ID: [id number] Transcribed By: Self Edit Transcribed Date: 06/26/2024 15:46 ET Narrative 06/26/2024 3:50 PM EDT Bilateral screening mammogram. CLINICAL: 54 years old, Female, routine annual exam. COMPARISON: TECHNIQUE: Bilateral MLO and CC views were obtained digitally with 2-D C views and 3-D mammogram (digital breast tomosynthesis). Computer-aided detection was utilized in evaluation of this exam (CAD). FINDINGS: There is small focal asymmetry in the anterior upper outer left breast. There is no evidence of other suspicious mass or architectural distortion. No worrisome calcifications are evident. BREAST DENSITY: C - The breasts are heterogeneously dense which may obscure small masses. Procedure Note Brenda Shay MD - 06/26/2024 Bilateral screening mammogram. CLINICAL: 54 years old, Female, routine annual exam. COMPARISON: TECHNIQUE: Bilateral MLO and CC views were obtained digitally with 2-D Cviews and 3-D mammogram (digital breast tomosynthesis). Computer-aideddetection was utilized in evaluation of this exam (CAD). FINDINGS: There is small focal asymmetry in the anterior upper outer left breast. There is no evidence of other suspicious mass or architectural distortion.No worrisome calcifications are evident. BREAST DENSITY: C - The breasts are heterogeneously dense which mayobscure small masses. IMPRESSION: Asymmetric opacity in the left upper outer breast. Additional evaluationis recommended with spot compression views in CC, MLO projection, fullfield straight lateral view all with 2 DC views and Tomosynthesis.Ultrasound would also be needed. BI-RADS CATEGORY: 0 - INCOMPLETE - NEED ADDITIONAL IMAGING EVALUATION RECOMMENDATION: Additional left breast imaging recommended. Mammo Location: [facility], [address] [place] [id number], [id number], . -------- FINAL REPORT -------- Dictated By: Brenda Shay Dictated Date: 06/26/2024 15:46 ET Assigned Physician: Brenda Shay Reviewed and Electronically Signed By: Brenda Shay Signed Date: 06/26/2024 15:50 ET Workstation ID: [id number] Transcribed By: Self Edit Transcribed Date: 06/26/2024 15:46 ET us Julio Umana MD IMG BI PROCEDURES Final Result * Pulmonary function testing: Carbon Monoxide Diffusing Capacity, Nitrogen Wash Out, Spirometry with Bronchodilator, Vital Capacity Test (06/21/2024 2:47 PM EDT) Impressions Gamal Barber MD - 06/21/2024 2:47 PM EDT 06/21/24 Spirometry FEV1 is 84% normal, FVC 79% normal, FEV1/FVC ratio is normal, no bronchodilators was done on this exam Lung volume TLC is 86 of normal, RV/TLC is 95% normal Diffusion DLCO is 91% normal Summary, this is a normal PFT Kenya Bradley MD PFT ORDERABLES Final Result * (ABNORMAL) Lipid panel with reflex to direct LDL (03/21/2024 1:20 PM EST) Cholesterol 186 0 - 200 mg/dL LAB CHEMISTRY METHOD 03/21/2024 4:33 PM [facility] Triglycerides 254(H) 0 - 150 mg/dL LAB CHEMISTRY METHOD 03/21/2024 4:33 PM [facility] HDL 61 >=40 mg/dL LAB CHEMISTRY METHOD 03/21/2024 4:33 PM [facility] LDL Calculated 74 0 - 100 mg/dL LAB CHEMISTRY METHOD 03/21/2024 4:33 PM [facility] VLDL Cholesterol Kev 50.8 mg/dL LAB CHEMISTRY METHOD 03/21/2024 4:33 PM [facility] Non HDL Chol. (LDL+VLDL) 125 <145 mg/dL LAB CHEMISTRY METHOD 03/21/2024 4:33 PM [facility] Chol/HDL Ratio 3.0 0.0 - 4.4 LAB CHEMISTRY METHOD 03/21/2024 4:33 PM [facility] Blood Venous blood specimen / Unknown Venipuncture / Unknown 03/21/2024 1:20 PM EST 03/21/2024 1:20 PM EST us Florencia Christopher FORDER OPERATOR LAB BLOOD ORDERABLES Final R esult [facility] [address] [place] [address], * Cervical Cancer Screening: HPV (05/27/2022) Cervical Cancer Screening: HPV Negative, Abstracted Historical Provider HEALTH MAINTENANCE Final Result * Colonoscopy (06/21/2020) Colonoscopy No Interpretation , Abstracted Anatomical Region Laterality Modality Other Historical Provider HEALTH MAINTENANCE Final Result from Last 3 Months or Most Recently Relevant to Health Maintenance Insurance [employer] Care Teams 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
--- OUTSIDE RECORDS SUMMARY | 2024-09-12 12:18 | XMS_ITS | Clinical Summary ---
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
--- OUTSIDE RECORDS SUMMARY | 2024-09-12 12:18 | XMS_ITS ---
Author Name [facility] Organization Unknown History of Medication Use Medication Directions Dispensed Refills Start Date End Date Stat us clonazePAM (KlonoPIN) 0.5 MG tablet TAKE 1/2 OR 1 TABLET BY MOUTH EVERY NIGHT AT BEDTIME NEEDED FOR SEVERE ANXIETY OR INSOMNIA 12/03/2023 active levothyroxine (SYNTHROID) tablet 75 mcg Take 1 tablet (75 mcg total) by mouth daily. 10/15/2023 active Diclofenac Sodium 1 % GEL 4 G TOPICALLY 4 TIMES A DAY FOR 14 DAYS APPLY TO RIGHT NECK AND SHOULDER 05/04/2022 active SUMAtriptan (IMITREX) 100 MG tablet Take 1 tablet (100 mg total) by mouth. 09/22/2021 active LORazepam (ATIVAN) 0.5 MG tablet 1 po bid prn anxiety or insomnia 01/22/2021 active cloNIDine (CATAPRES) tablet 0.1 mg Take 1 tablet (0.1 mg total) by mouth every night at bedtime. 02/28/2020 active traMADol (ULTRAM) 50 MG tablet TK 1 T PO QHS AND Q 4 H PRN UTD 01/26/2020 active amitriptyline (ELAVIL) 10 MG tablet Take 1 tablet (10 mg total) by mouth. active Problems Problem Status Onset Date Problem Type Date of Resoluti on Source Encounter for screening mammogram for breast cancer active EncounterDiagnosisAct CT_TH [facility] Abnormal brain MRI active EncounterDiagnosisAct CTTHMS [facility] Encounters Encounter Type Encounter Reason Primary Diagnosis Location Date Ambulatory Other abnormal findings on diagnostic imaging of central nervous system Other abnormal findings on diagnostic imaging of central nervous system [facility] 12/23/2023 Ambulatory Other abnormal findings on diagnostic imaging of central nervous system Other abnormal findings on diagnostic imaging of central nervous system [facility] 12/23/2023 Care Team Organization Name Specialty Phone Email Start Date End Da te [facility] Julio Umana Primary [facility] 01/08/2024 [facility] Julio Umana [facility] 01/06/2024 [facility] 12/27/2023 [facility] 12/25/2023
== END 2024-09-12 12:06 | disposition home or self-care (01) ==
PROVIDERS: PCP Internal Medicine; Visit Provider Internal Medicine Rheumatology
DX: R76.8 Other specified abnormal immunological findings in serum (principal)
CPT/HCPCS: 99204

== ENCOUNTER → 2024-09-12 10:56 | Outpatient (BNVA) | payer OTHER, SELFPAY | PROVIDERS: PCP Physician Assistant; Visit Provider Internal Medicine Rheumatology | DX: G43.009 Migraine without aura, not intractable, without status migrainosus (principal); R90.82 White matter disease, unspecified; R20.2 Paresthesia of skin; G24.3 Spasmodic torticollis; F07.81 Postconcussional syndrome; F06.30 Mood disorder due to known physiological condition, unspecified; S09.90XS Unspecified injury of head, sequela; R76.8 Other specified abnormal immunological findings in serum | CPT/HCPCS: 99202; 99212 ==

== ENCOUNTER 2024-09-12 14:18 | Outpatient (AMB) | payer OTHER, SELFPAY ==
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
[2024-09-12 14:27] VITALS: BP 108/66; PULSE 92; O2SAT 99; BMI 21.2
== END 2024-09-12 15:40 | disposition home or self-care (01) ==
LOC: HO.HSMS 14:19
PROVIDERS: PCP Internal Medicine; Visit Provider Nurse Practitioner Family
DX: G24.3 Spasmodic torticollis (principal); F07.81 Postconcussional syndrome; F06.30 Mood disorder due to known physiological condition, unspecified; R20.2 Paresthesia of skin; F09 Unspecified mental disorder due to known physiological condition; R90.82 White matter disease, unspecified; G43.009 Migraine without aura, not intractable, without status migrainosus
CPT/HCPCS: 99214